=== PATIENT | female | born 1965 | race Caucasian/White ===

== ENCOUNTER → 2016-07-04 | Outpatient (CLI) | payer BC ==
[~2016-07-04] MED LIST: AMBIEN 5MG TABLE5 MG PO; ELAVIL100 MG PO; LASIX 20MG TABL20 MG PO; LASIX 80MG TABL80 MG PO; MIRALAX PA17 GM/Dose PO; NATURAL E400 IU PO; OXAYDO5 MG PO; PHENERGAN 25 TA25 MG PO; RYBIX ODT50 MG PO; SAVELLA50 MG; SAVELLA50 MG PO; TURMERIC500 MG PO; VISTARIL 2525 MG/CAP PO
== END ==
LOC: COL.RAD 09:26
DX: M25.551 Pain in right hip (principal); M16.11 Unilateral primary osteoarthritis, right hip
CPT/HCPCS: J3301; Q9967

== ENCOUNTER 2017-06-17 11:03 | Day surgery (SDC) | payer BC ==
[~2017-06-17] VITALS: Ht 152.4 cm; Wt 104.0 kg
[2017-06-17] VITALS (11 sets, daily range): BP systolic 98–105; BP diastolic 53–77; PULSE 16–78; TEMP 69–97.8
[2017-06-17 11:46] LABS: HEMATOCRIT 43.7 % (37.0-47.0); HEMOGLOBIN 14.4 g/dl (12.5-16.0); MEAN CELL VOLUME 91 fl (80.0-100.0); MEAN CORPUSCULAR HEMOGLOBIN 30 pg (27.0-31.0); MEAN CORPUSCULAR HGB CONC 33 g/dl (33.0-37.0); MEAN PLATELET VOLUME 10.8 fl (7.4-10.4); PLATELET COUNT 218 K/mm3 (130-400); RED BLOOD COUNT 4.79 M/mm3 (4.10-5.30)
[2017-06-17 11:56] LABS: CALCIUM 10.1 mg/dL (8.4-10.2); CREATININE, serum 0.89 mg/dL (0.52-1.25); POTASSIUM 4.3 mmol/L (3.4-5.0)
[2017-06-17] MEDS ORDERED: LEVOXYL0.125 MG PO (12:01)
[2017-06-17] MEDS ORDERED: PROBIOTIC FORMU1 CAP PO (12:01)
[2017-06-17] MEDS ORDERED: ZEBETA 5MG5 MG PO (12:02)
[2017-06-17] MEDS ORDERED: VITAMIN D31000 I1 PO (12:02)
[2017-06-17] MEDS ORDERED: ASPIRIN 81M81 MG/TA2 PO (12:02)
[2017-06-17] MEDS ORDERED: CPAP (12:03)
[2017-06-17 12:04] LABS: INR 0.9 (0.8-3.0); PROTHROMBIN TIME 10.7 SECONDS (9.7-12.8)
== END 2017-06-17 18:50 | disposition home or self-care (01) ==
LOC: COL.CAR 11:03
PROVIDERS: Internal Medicine Cardiovascular Disease
DX: R07.89 Other chest pain (principal); R94.39 Abnormal result of other cardiovascular function study; E78.5 Hyperlipidemia, unspecified; K58.9 Irritable bowel syndrome, unspecified; I99.8 Other disorder of circulatory system; I20.9 Angina pectoris, unspecified; Z91.040 Latex allergy status
CPT/HCPCS: C1760; C1769; C1894; J1200; J2250; J2405; J3010; Q9967

== ENCOUNTER 2020-02-03 20:36 | Inpatient (IN) | payer BC ==
[~2020-02-03] VITALS: Ht 152.4 cm; Wt 119.1 kg
[2020-02-03] VITALS (60 sets, daily range): PULSE 77; TEMP 98.2; O2SAT 94–100
[~2020-02-03 20:36] MED LIST changes: +ASPIRIN 81M81 MG/TA2 PO; +CPAP; +LEVOXYL0.125 MG PO; +PROBIOTIC FORMU1 CAP PO; +VITAMIN D31000 I1 PO; +ZEBETA 5MG5 MG PO
--- NOTE | 2020-02-03 21:17 | NUR ---
PT ARRIVED IN UNIT WITH INSULIN DRIP RUNNING AT 3 UNITS/HR.
[2020-02-03 22:26] LABS: BASO % 0.3 % (0.0-2.0); EOS # 0.1 (0.0-0.7); EOS % 1.3 % (0-4.0); GRAN # 6.2 (1.4-6.5); GRAN % 60.3 % (42.2-75.2); HEMATOCRIT 39.5 % (37.0-47.0); HEMOGLOBIN 13.1 g/dl (12.5-16.0); LYMPH # 3.3 (1.2-3.4); LYMPH % 32.5 % (20.0-51.0); MEAN CELL VOLUME 95 fl (80.0-100.0); MEAN CORPUSCULAR HEMOGLOBIN 31 pg (27.0-31.0); MEAN CORPUSCULAR HGB CONC 33 g/dl (33.0-37.0); MEAN PLATELET VOLUME 10.9 fl (7.4-10.4); MONO # 0.5 (0.1-0.6); PLATELET COUNT 179 K/mm3 (130-400); RED BLOOD COUNT 4.18 M/mm3 (4.10-5.30); REDCELL DISTRIBUTION WIDTH-CV 14.3 % (11.5-14.5)
[2020-02-03] MEDS ORDERED: NITROSTAT0.4 MG/TAB SL (22:29)
[2020-02-03] MEDS ORDERED: NEURONTIN300 MG/CAP PO (22:31)
[2020-02-03] MEDS ORDERED: CQ10 PO (22:32)
[2020-02-03] MEDS ORDERED: GLUCOPHAGE500 MG/TAB PO (22:35)
[2020-02-03 22:36] LABS: ALBUMIN 3.7 gm/dL (3.5-5.0); BILIRUBIN,TOTAL 0.5 mg/dL (0.0-1.0); CALCIUM 8.5 mg/dL (8.4-10.2); CREATININE, serum 0.78 (0.52-1.25); MAGNESIUM 1.9 mg/dL (1.6-2.3); PHOSPHOROUS 3.4 mg/dL (2.5-4.5); POTASSIUM 3.9 mmol/L (3.4-5.0); TOTAL PROTEIN 6.6 gm/dL (6.4-8.2)
[2020-02-03] MEDS ORDERED: ROXICODONE 55 MG/TAB PO ×3 (22:40→22:42)
[2020-02-04] VITALS (452 sets, daily range): BP systolic 99–148; BP diastolic 53–92; PULSE 72–82; TEMP 97.5–98.1; O2SAT 86–100
--- NOTE | 2020-02-04 00:10 | NUR ---
MEDICATIONS ON PILL BOX CONTAINER WILL BE SENT DOWN TO PHARMACY. [facility].
--- NOTE | 2020-02-04 00:11 | NUR ---
2114 - REPORT RECEIVED FROM BRIAN SARKAR. 2116 - PT ARRIVED VIA EMS, A DIRECT ADMIT FROM [place]. PT INDEPENEDENTLY TRANSFERED SELF TO BED. PT HAS NS RUNNING VIA GRAVITY AND INSULIN DRIP RUNNING AT 3 UNITS/HR. PT DENIES ANY PAIN/SOB/DISCOMFORT. PT ALERT AND ORIENTED X4, ON ROOM AIR. VS WNL.
[2020-02-04] MEDS ORDERED: FAMVIR 500500 MG/TAB PO (00:36)
[2020-02-04 00:52] LABS: CALCIUM 8.4 mg/dL (8.4-10.2); CREATININE, serum 0.81 (0.52-1.25); POTASSIUM 3.7 mmol/L (3.4-5.0)
[2020-02-04 02:29] LABS: COLLECTION METHOD CLEAN CATCH
[2020-02-04 02:43] LABS: PH 6 (5-8); SQUAMOUS EPITHELIAL 0-2 /hpf; URINE APPEARANCE Clear; URINE BACTERIA Moderate /hpf; URINE BILIRUBIN Negative (NEGATIVE); URINE BLOOD Negative (NEGATIVE); URINE COLOR Yellow; URINE GLUCOSE 1+ (NEGATIVE); URINE KETONE Negative (NEGATIVE); URINE LEUKOCYTE ESTERASE 1+ (NEGATIVE); URINE NITRATE Negative (NEGATIVE); URINE PROTEIN(semi-quant) Negative (NEGATIVE); URINE RBC 0-2 /hpf; URINE UROBILINOGEN Negative (NEGATIVE)
[2020-02-04 04:30] LABS: CALCIUM 7.5 mg/dL (8.4-10.2); CREATININE, serum 0.64 (0.52-1.25); POTASSIUM 3.5 mmol/L (3.4-5.0)
--- NOTE | 2020-02-04 09:33 | NUR ---
Stone Driller Helper met with the patient to complete intake. The patient lives in [place] with her , Kody. The patient has a CPAP and a cane she uses if her "back is acting up." The patient has a nerve stimulator and has a security alarm technician for it. The patient's PCP is CYN Olmedo. The patient receives medications and CPAP supplies from [facility] in [place]. The patient has advanced directives in the EMR. The patient plans to return home with Kody at discharge and he will provide transportation. There are no additional needs at this time.
--- NOTE | 2020-02-04 10:00 | NUR ---
Diesel Bus Mechanic attended clinical rounds with the team. The patient is to be transferred to the floor.
--- NOTE | 2020-02-04 14:34 | NUR ---
Initial visit; Patient thanked Sheep Clipper for looking in on her and offering comfort and God's blessings.
--- NOTE | 2020-02-04 15:56 | NUR ---
REPORT GIVEN TO BRIAN CURRY
--- NOTE | 2020-02-04 20:20 | NUR ---
Patient assessed at this time. Alert and oriented x 4, and able to make needs known. Denies having pain and discomfort at this time. Peripheral INT to left forearm with fluids running per orders. Site is without redness, wearmht, swelling, and pain. Denies having SOB and dyspnea. LS CTA. Respirations even and unlabored. HRR. capillary refill less than 3 seconds. Non-tenting skin turgor. BSAx4. Abdomen soft and non-tender. 1+ edema BLE. Voices no questions, needs, or concerns at this time. Resting in bed with call light within reach. Given PRN Ambien as requested.
[2020-02-05 03:56] VITALS: BP 120/52; PULSE 83; TEMP 97.7
--- NOTE | 2020-02-05 05:43 | NUR ---
Patient has been resting in bed with eyes closed. Has denied having pain and discomfort this shift. Voices no questions, needs, or concerns at this time. Call light is within reach.
--- NOTE | 2020-02-05 07:00 | NUR ---
Report with BRIAN Moeller. Pt sitting up in bed, reports pain and tingling to left arm around IV site. IVF's stopped d/t pain, will discuss with provider. No further needs reported. Call light in reach.
[2020-02-05 07:24] LABS: CALCIUM 8.6 mg/dL (8.4-10.2); CREATININE, serum 0.73 (0.52-1.25); MAGNESIUM 1.9 mg/dL (1.6-2.3); POTASSIUM 4.1 mmol/L (3.4-5.0)
--- NOTE | 2020-02-05 08:30 | NUR ---
Assessment complete. Pt sitting up in chair, A&O x 4. Physical assessment unremarkable. Pt denies pain at this time, reports tenderness around IV site in left forearm. POC reviewed with pt. No further needs reported. Call light in reach.
[2020-02-05 08:34] VITALS: BP 138/76; PULSE 87; TEMP 98.1
[2020-02-05 11:16] VITALS: BP 125/61; PULSE 76; TEMP 97.7
[2020-02-05] MEDS ORDERED: GLUCOTROL 5M5 MG/TAB PO (11:30)
[2020-02-05] MEDS ORDERED: GLUCOPHAGE1000 MG PO (11:30)
--- NOTE | 2020-02-05 12:30 | NUR ---
Discharge instructions reviewed with pt regarding new/changes to medications and follow-up appointments. Home medications returned to pt from pharmacy. Questions invited and answered. Pt discharged home, escorted out of facility via WC accompanied by BARREL FILLER and pt's .
== END 2020-02-05 12:30 | disposition home or self-care (01) | DRG 638 ==
LOC: ICU 20:36 → MEDICAL 02-04 15:59
PROVIDERS: Internal Medicine; Nurse Practitioner Family; ADMIT Student in an Organized Health Care Education/Training Program
DX: E11.00 Type 2 diabetes mellitus with hyperosmolarity without nonketotic hyperglycemic-hyperosmolar coma (NKHHC) (principal); N17.9 Acute kidney failure, unspecified; E11.65 Type 2 diabetes mellitus with hyperglycemia; F32.9 Major depressive disorder, single episode, unspecified; G47.00 Insomnia, unspecified; G47.30 Sleep apnea, unspecified; G89.29 Other chronic pain; M79.7 Fibromyalgia; K76.0 Fatty (change of) liver, not elsewhere classified; R82.71 Bacteriuria; R82.81 Pyuria; I10 Essential (primary) hypertension; E66.01 Morbid (severe) obesity due to excess calories; Z90.710 Acquired absence of both cervix and uterus; Z87.891 Personal history of nicotine dependence
CPT/HCPCS: 99223-AI; 99232-AI; 99239; J0696; J1650; J1815; J7030

== ENCOUNTER → 2020-11-21 | Outpatient (CLI) | payer BC ==
[~2020-11-21] MED LIST changes: +CQ10 PO; +FAMVIR 500500 MG/TAB PO; +GLUCOPHAGE1000 MG PO; +GLUCOPHAGE500 MG/TAB PO; +GLUCOTROL 5M5 MG/TAB PO; +NEURONTIN300 MG/CAP PO; +NITROSTAT0.4 MG/TAB SL; +ROXICODONE 55 MG/TAB PO
== END ==
LOC: COL.RAD 10:39
DX: S83.242A Other tear of medial meniscus, current injury, left knee, initial encounter (principal); M94.262 Chondromalacia, left knee; M71.22 Synovial cyst of popliteal space [Baker], left knee

== ENCOUNTER → 2020-12-06 | Outpatient (CLI) | payer BC | LOC: COL.RAD 11:51 | DX: M23.311 Other meniscus derangements, anterior horn of medial meniscus, right knee (principal); M22.2X1 Patellofemoral disorders, right knee; M23.91 Unspecified internal derangement of right knee ==